=== PATIENT | male | born 1970 | race Caucasian/White ===

== ENCOUNTER 2021-11-10 12:22 | Emergency (ER) | payer BC ==
[2021-11-10] MEDS ORDERED: LOPRESSOR 50 MG50 MG PO (13:34)
== END 2021-11-10 13:53 | disposition home or self-care (01) ==
LOC: ER1 12:22
DX: I10 Essential (primary) hypertension (principal); Z76.0 Encounter for issue of repeat prescription; F17.220 Nicotine dependence, chewing tobacco, uncomplicated; Z95.1 Presence of aortocoronary bypass graft; Z88.5 Allergy status to narcotic agent; Z88.8 Allergy status to other drugs, medicaments and biological substances
CPT/HCPCS: 93005; 99283